=== PATIENT | male | born 1985 | race Caucasian/White ===

== ENCOUNTER → 2016-09-21 | Outpatient (CLI) | payer OTHER ==
[~2016-09-21] MED LIST: AMX500 PO; IBUP600T44 PO; INSDGI SC; PENI-82 PO
== END | disposition home or self-care (01) ==
LOC: C.LAB 00:52
DX: Z02.83 Encounter for blood-alcohol and blood-drug test (principal)

== ENCOUNTER 2020-09-02 12:42 | Inpatient (IN) ==
[2020-09-02] MEDS ORDERED: FAMOTIDINE 20MG IV PUSH 20 MG/5 ML SYR IV STA (12:59)
[2020-09-02] MEDS ORDERED: SODIUM CHLORIDE 0.9% 1000ML 1,000 ML IV ONE ×2 (12:59→13:56)
[2020-09-02] MEDS ORDERED: PANTOprazole 40 MG in SYRINGE 0 ML IV ONE (12:59)
[2020-09-02] MEDS ORDERED: fentaNYL citrate 100 MCG/2 ML VIAL IV PRN (12:59)
[2020-09-02] MEDS ORDERED: ONDANSETRON INJ 2 MG/ML 2 ML VIAL IV STA (12:59)
--- NOTE | 2020-09-02 13:12 | Emergency Department Note ---
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 posterior right ninth rib redemonstrated. KUB: Nonobstructive bowel gas pattern. No pneumatosis or pneumoperitoneum. No uroli th. Mild to moderate fecal retention. No acute fracture. IMPRESSION: 1. Acute mildly displaced fracture of the posterolateral right ninth rib redemonstrated. No pneumothorax. 2. Nonobstructive bowel gas pattern. ACT 112: Negative or not required by law. The above report was generated using voice recognition software. It may contain grammatical, syntax or spelling errors. Electronically signed by: Juan Kaye M.D. 09/02/2020 1:37 PM Abdomen/Pelvis CT 09/02/20 13:[address] WITHOUT CONTRAST CT DOSE: 284.49 mGy.cm HISTORY: Acute generalized abdominal pain with nausea and vomiting vomiting TECHNIQUE: Multiaxial CT images of the abdomen and pelvis were performed without contrast. A dose lowering technique was utilized adhering to the principles of ALARA. COMPARISON STUDY: KUB of same day, CT abdomen and pelvis 08/02/2020 FINDINGS: Subpleural 9 mm nodular density of the basal right lower lobe is new from comparison suggestive of scarring/atelectasis. Clear left lung base. No pn eumatosis or pneumoperitoneum. Hepatomegaly with hepatic steatosis. Probable cyst of the left hepatic lobe, 8 mm. There is suggested gallbladder sludge. The spleen, pancreas and adrenal glands are unremarkable. Kidneys appear normal. Moderate distention of the urinary bladder. 1.3 cm peripherally calcified structure of the left vas deferens, likely benign. Calcified plaque of the abdominal aorta without aneurysm. There is no adenopathy. Fluid-filled distended distal esophagus. Moderately distended fluid-filled stomach. No bowel obstruction. Normal appendix. Wall thickening of the cecum. Unremarkable soft tissues. Subacute healing mildly displaced fracture of the right lateral ninth rib. IMPRESSION: 1. No bowel obstruction or pneumoperitoneum. Normal appendix. 2. Mild wall thickening of the cecum secondary to partial distention versus a nonspecific colitis. 3. Moderately distended fluid-filled stomach. 4. Healing subacute mildly displaced fracture of the posterolateral right ninth rib. Resolution of the previously noted trace right pneumothorax. 5. Hepatomegaly with hepatic steatosis. ACT 112: Negative or not required by law. The above report was generated using voice recognition software. It may contain grammatical, syntax or spelling errors. Electronically signed by: Juan Kaye M.D. 09/02/2020 3:36 PM Discharge Plan Visit Data Chief Complaint: Vomiting Stated Complaint: THROWING UP SINCE YESTERDAY/NOT FEELING WELL ED Provider: Dilip Webb Discharge Problem: DKA, type 1, Vomiting, Acute hyperkalemia, Acute kidney injury, Acute deh ydration, Acute upper gastrointestinal bleeding Patient Disposition: Admitted As Inpatient Condition: Good Discharge Instructions Interventions: ED Discharge Assessment Last Done: 09/02/20 18:28 Discharge Problem: DKA, type 1 Qualifiers: Diabetes mellitus complication detail: without coma Qualified Code(s): E10.10 - Type 1 diabetes mellitus with ketoacidosis without coma Vomiting Qualifiers: Vomiting type: unspecified Vomiting Intractability: non-intractable Nausea presence: with nausea Qualified Code(s): R11.2 - Nausea with vomiting, unspecified
[2020-09-02 13:28] LABS: Hematocrit (blood only) 50.5 % (42-52); Hemoglobin 17.2 g/dL (14.0-18.0); Mean Corpuscular Hemoglobin 33.5 pg (25-34); Mean Corpuscular Hgb Conc 34.1 g/dL (32-36); Mean Corpuscular Volume 98.2 fL (80-100); Platelet Count 236 K/uL (130-400); RDW Standard Deviation 43.4 fL (36.4-46.3); Red Blood Count 5.14 M/uL (4.7-6.1); White Blood Count 21.17 K/uL (4.8-10.8)
--- NOTE | 2020-09-02 13:38 | XRay Report ---
XR chest 1V portable, XR KUB/Abdomen 1 view HISTORY: 35 years-old Male vomiting acute chest pain with nausea and vomiting COMPARISON: Chest radiograph 08/02/2020 TECHNIQUE: AP view of the chest with KUB radiograph FINDINGS: CHEST: Cardiomediastinal and hilar silhouettes are within normal limits. There is no pneumothorax, pleural e ffusion, airspace consolidation or overt pulmonary edema. Acute mildly displaced fracture of the post erior right ninth rib redemonstrated. KUB: Nonobstructive bowel gas pattern. No pneumatosis or pneumoperitoneum. No urolith. Mild to moderate fe myron retention. No acute fracture. IMPRESSION: 1. Acute mildly displaced fracture of the posterolateral right ninth rib redemonstrated. No pneumotho rax. 2. Nonobstructive bowel gas pattern. ACT 112: Negative or not required by law. The above report was generated using voice recognition software. It may contain grammatical, syntax o r spelling errors. Electronically signed by: Juan Kaye M.D. 09/02/2020 1:37 PM
[2020-09-02 13:48] LABS: INR 0.9 (0.9-1.1); Partial Thromboplastin Ratio 1.1; Partial Thromboplastin Time 29.6 Seconds (21.0-31.0); Prothrombin Time 9.1 Seconds (9.0-12.0)
[2020-09-02 13:54] LABS: Alanine Aminotransferase 58 U/L (12-78); Albumin Level 4.3 gm/dl (3.4-5.0); Alkaline Phosphatase 114 U/L (45-117); Aspartate Aminotransferase 15 U/L (15-37); BUN Creatinine Ratio 19.6 (10-20); Bilirubin,Total 0.9 mg/dl (0.2-1); Blood Urea Nitrogen 32 mg/dl (7-18); Calcium 10.8 mg/dl (8.5-10.1); Carbon Dioxide 7 mmol/L (21-32); Chloride 89 mmol/L (98-107); Creatinine Clr Calc Pharmacy 61.5 ml/min; Est GFR (African American) 61.9; Est GFR (Non-African American) 53.4; Glucose 619 mg/dl (70-99); Lipase 185 U/L (73-393); Potassium 5.5 mmol/L (3.5-5.1); Sodium 128 mmol/L (136-145); Troponin I < 0.015 ng/ml (0-0.045)
[2020-09-02] MEDS ORDERED: LACTATED RINGER'S 1,000 ML IV ONE (13:56)
[2020-09-02 13:58] LABS: ALC (manual) 0.85 K/uL (1.2-3.4); ANC (manual) 19.69 K/uL (1.4-6.5); Lymphocytes # (manual) 0.85 K/uL (1.2-3.4); Monocytes # (manual) 0.64 K/uL (0.11-0.59); Neutrophils # (manual) 19.69 K/uL (1.4-6.5); RBC Morphology Unremarkable
[2020-09-02] MEDS ORDERED: DEXTROSE 50% 50 ML SYRINGE IV PRN (14:00)
[2020-09-02] MEDS ORDERED: GLUCOSE 40% GEL 15 GM TUBE PO PRN (14:00)
[2020-09-02] MEDS ORDERED: GLUCAGON FOR INJ 1 MG VIAL SQ PRN (14:00)
[2020-09-02] MEDS ORDERED: GLUCOSE 10 TABS/TUBE PO PRN (14:00)
[2020-09-02] MEDS ORDERED: ED DKA INSULIN DRIP ONE (14:00)
[2020-09-02] MEDS ORDERED: CARBOHYDRATES FOR HYPOGLYCEMIA PO PRN (14:00)
[2020-09-02] MEDS ORDERED: DKA GOAL RANGE 150-250 mg/dl ONE (14:00)
[2020-09-02 14:02] LABS: Base Excess VBG -21.9 mEq/L; Oxygen Saturation VBG 97.7 %; pH VBG 7.08 (7.36-7.41)
[2020-09-02 14:13] LABS: iSTAT Ionized Calcium 1.1 mmol/l (1.12-1.32); iSTAT Potassium 6.1 mmol/L (3.3-5.0)
[2020-09-02] MEDS ORDERED: NovoLIN-R BOLUS FROM BAG IV ONE (14:15)
[2020-09-02 14:24] LABS: Magnesium 2.8 mg/dl (1.8-2.4); Phosphorus 8.1 mg/dl (2.5-4.9)
[2020-09-02] MEDS ORDERED: NovoLIN-R INSULIN PER UNIT CHARGE ONE (14:25)
[2020-09-02] MEDS: INSULIN REGULAR 250 UNITS in SODIUM CHLORIDE 0.9% 247.5 ML IV SCH ×4 (14:40→18:22)
[2020-09-02 14:43] LABS: Beta-Hydroxybutyrate 35.59 mg/dl (0.2-2.81)
[2020-09-02 14:59] LABS: Albumin Globulin Ratio 0.9 (0.9-2); Globulin 4.7 gm/dl (2.5-4.0)
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
[2020-09-02 15:17] LABS: Gastric Occult Blood Positive (Negative); pH Gastric Fluid 1
--- NOTE | 2020-09-02 15:38 | CT Scan Report ---
ABDOMEN AND PELVIS CT WITHOUT CONTRAST CT DOSE: 284.49 mGy.cm HISTORY: Acute generalized abdominal pain with nausea and vomiting vomiting TECHNIQUE: Multiaxial CT images of the abdomen and pelvis were performed without contrast. A dose lo wering technique was utilized adhering to the principles of ALARA. COMPARISON STUDY: KUB of same day, CT abdomen and pelvis 08/02/2020 FINDINGS: Subpleural 9 mm nodular density of the basal right lower lobe is new from comparison suggestive of sc arring/atelectasis. Clear left lung base. No pneumatosis or pneumoperitoneum. Hepatomegaly with hepatic steatosis. Probable cyst of the left hepatic lobe, 8 mm. There is suggested gallbladder sludge. The spleen, pancreas and adrenal glands are unremarkable. Kidneys appear normal. Moderate distention of the urinary bladder. 1.3 cm peripherally calcified structure of the left vas deferens, likely benign. Calcified plaque of the abdominal aorta without aneurysm. There is no adenop athy. Fluid-filled distended distal esophagus. Moderately distended fluid-filled stomach. No bowel obstruct ion. Normal appendix. Wall thickening of the cecum. Unremarkable soft tissues. Subacute healing mildl y displaced fracture of the right lateral ninth rib. IMPRESSION: 1. No bowel obstruction or pneumoperitoneum. Normal appendix. 2. Mild wall thickening of the cecum secondary to partial distention versus a nonspecific colitis. 3. Moderately distended fluid-filled stomach. 4. Healing subacute mildly displaced fracture of the posterolateral right ninth rib. Resolution of th e previously noted trace right pneumothorax. 5. Hepatomegaly with hepatic steatosis. ACT 112: Negative or not required by law. The above report was generated using voice recognition software. It may contain grammatical, syntax o r spelling errors. Electronically signed by: Juan Kaye M.D. 09/02/2020 3:36 PM
[2020-09-02] MEDS ORDERED: INSULIN ASPART 100 UNITS/ML 3 ML PEN SC SCH ×2 (16:30→18:32)
[2020-09-02 16:54] LABS: Influenza A virus by PCR Negative (Neg); Influenza B virus by PCR Negative (Neg); RSV by PCR Negative (Neg); SARS CoV2 RNA(COVID-19) InHosp NEGATIVE (Negative)
--- NOTE | 2020-09-02 16:55 | Communication Note ---
Date of Service: September 02, 2020
[2020-09-02] MEDS ORDERED: INSULIN REGULAR 250 UNITS in SODIUM CHLORIDE 0.9% 247.5 ML IV SCH ×2 (18:32→19:00)
[2020-09-02] MEDS ORDERED: hydrALAZINE HCL 20 MG/ML VIAL IV PRN (18:32)
[2020-09-02] MEDS ORDERED: PHARMACY GLYCEMIC MGMT CONSULT PRN (18:37)
[2020-09-02] MEDS ORDERED: NORMOSOL-R 1,000 ML IV SCH (18:45)
--- NOTE | 2020-09-02 18:46 | Electrocardiogram Report ---
Test Reason : Blood Pressure : / mmHG Vent. Rate : 120 BPM Atrial Rate : 120 BPM P-R Int : 154 ms QRS Dur : 102 ms QT Int : 308 ms P-R-T Axes : 071 079 055 degrees QTc Int : 435 ms Sinus tachycardia Biatrial enlargement Incomplete right bundle branch block Abnormal ECG When compared with ECG of 02-AUG-2020 18:56, ST elevation now present in Anterior leads Confirmed by Terence Ballard ([id number]) on 09/02/2020 6:46:25 PM Referred By: REFERRED SELF Confirmed By:Leodan Ballard
[2020-09-02] MEDS: FOLIC ACID 1 MG in SYRINGE 9.8 ML IV SCH (19:29)
[2020-09-02] MEDS: THIAMINE HCL 100 MG in SYRINGE 9 ML IV SCH (19:29)
[2020-09-02] MEDS: INSULIN ASPART 100 UNITS/ML 3 ML PEN SC SCH ×2 (19:31→20:41)
[2020-09-02 19:35] LABS: BUN Creatinine Ratio 23.8 (10-20); Calcium 9.2 mg/dl (8.5-10.1); Creatinine Clr Calc Pharmacy 93.4 ml/min; Est GFR (Non-African American) 82.9; Magnesium 2.3 mg/dl (1.8-2.4); Potassium 4.7 mmol/L (3.5-5.1)
[2020-09-02 19:39] LABS: Phosphorus 1.7 mg/dl (2.5-4.9)
[2020-09-02] MEDS: PENDING D5 1/2NS+20mEq KCL IVF SCH ×2 (19:43→21:06)
[2020-09-02] MEDS ORDERED: SODIUM CHLOR 0.45% + 20MEQ KCL 20 MEQ/1,000 ML BAG IV SCH (20:00)
[2020-09-02] MEDS ORDERED: Nursing to Pharmacy Communication SCH (20:45)
[2020-09-02] MEDS ORDERED: LORazepam 3 MG/6 ML VIAL IV PRN (20:53)
[2020-09-02] MEDS ORDERED: GABAPENTIN 600 MG TAB PO ONE (20:53)
[2020-09-02] MEDS ORDERED: GABAPENTIN 1200MG ALCOHOL WITHDRAWAL LOAD PO STA (20:53)
[2020-09-02] MEDS ORDERED: ATIVAN IV ALCOHOL WITHDRAWL IV PRN (20:53)
[2020-09-02] MEDS ORDERED: LORazepam 1 MG/2 ML VIAL IV PRN (20:53)
[2020-09-02] MEDS ORDERED: LORazepam 2 MG/4 ML VIAL IV PRN (20:53)
[2020-09-02 21:00] LABS: Appearance Urine Clear (Clear); Bacteria Urine Automated Negative (Negative); Bilirubin Urine Negative (Negative); Blood Urine Negative (Negative); Color Urine Yellow; Glucose Urine UA 3+ (Negative); Ketones Urine 4+ (Negative); Leukocyte Esterase Urine Negative (Negative); Nitrite Urine Negative (Negative); Protein Urine Trace (Negative); RBC Urine Automated 0-4 /hpf (0-4); Urobilinogen Urine Negative (Negative)
[2020-09-02] MEDS: D5W AND 1/2NSS + 20MEQ KCL 20 MEQ/1,000 ML BAG IV SCH (21:12)
--- NOTE | 2020-09-02 21:18 | Pharmacy Report ---
Pharmacy Glycemic Short Note 2 - Date of Service September 02, 2020 - Glycemic Short BSG Results (Last 24 hours): 09/02/20 09/02/20 09/02/20 13:21 14:01 14:38 Glucose 619 H* POC Glucose 592 H* POC Glucose (other) 625 H* 09/02/20 09/02/20 09/02/20 15:47 17:02 18:17 Glucose POC Glucose 551 H* 473 H* 394 H* POC Glucose (other) 09/02/20 09/02/20 09/02/20 19:07 19:32 20:32 Glucose 278 H POC Glucose 294 H 234 H POC Glucose (other) OUTPATIENT ANTIDIABETIC REGIMEN: * Basaglar 21 units SC HS * Novolog w/ meals and snack (4 times daily, up to 60 units/day) * HbA1c ordered and pending ASSESSMENT: * CR is a 35 year old male with T1DM who presented to ED this afternoon in DKA * Initial labs in ED: * Blood glucose: 619 mg/dL * CO2: 7 mmol/L * A * pH: 7.08 * BHA: 35 mg/dL * K+: 5.5 mmol/L * Patient was started on insulin infusion and IV fluids per DKA protocol * BSGs trended down nicely this evening 619 -> 234 mg/dL most recently * Labs also much improved this evening * CO2: 12 mmol/L, A, pH: 7.28, K+: 4.7 mmol/L * BSG now within goal range, so current IV fluids to incorporate dextrose * D5-1/2 NS + 20 KCl @250 mL/hr PLAN FOR INPATIENT GLYCEMIC CONTROL: * Will continue insulin infusion until anion gap closes and DKA resolves * Current insulin infusion rate is 8.9 unit/hr * Basal insulin * Hold today * Bolus insulin * NovoLog per scale ACHS or Q6hrs while NPO * Carb ratio per insulin infusion calculator PLAN FOR DISCHARGE: * tbd
[2020-09-02] MEDS: PANTOprazole 40 MG in SYRINGE 0 ML IV SCH (21:30)
[2020-09-02 22:45] LABS: Calcium 8.9 mg/dl (8.5-10.1); Creatinine Clr Calc Pharmacy 112.1 ml/min; Est GFR (African American) 119.7; Est GFR (Non-African American) 103.3; Magnesium 2.1 mg/dl (1.8-2.4); Potassium 4.8 mmol/L (3.5-5.1)
[2020-09-02 23:05] LABS: Phosphorus 0.8 mg/dl (2.5-4.9)
[2020-09-02] MEDS ORDERED: SODIUM PHOSPHATE 3 MMOL/1 ML INFUSION IV STA (23:07)
[2020-09-02] MEDS ORDERED: SODIUM PHOSPHATE 24 MMOL in SODIUM CHLORIDE 0.9% 500 ML IV ONE (23:15)
[2020-09-03] MEDS: D5W AND 1/2NSS + 20MEQ KCL 20 MEQ/1,000 ML BAG IV SCH ×3 (00:59→12:31)
[2020-09-03 03:04] LABS: BUN Creatinine Ratio 21.8 (10-20); Calcium 8.9 mg/dl (8.5-10.1); Creatinine Clr Calc Pharmacy 136.5 ml/min; Est GFR (African American) 135.5; Est GFR (Non-African American) 116.9; Magnesium 2.2 mg/dl (1.8-2.4); Potassium 4.3 mmol/L (3.5-5.1)
[2020-09-03] MEDS: GABAPENTIN 600 MG TAB PO SCH ×3 (03:44→18:17)
[2020-09-03 06:43] LABS: BUN Creatinine Ratio 22.1 (10-20); Calcium 8.9 mg/dl (8.5-10.1); Creatinine Clr Calc Pharmacy 145.8 ml/min; Est GFR (African American) 139.3; Est GFR (Non-African American) 120.2; Magnesium 2.1 mg/dl (1.8-2.4); Phosphorus 2.2 mg/dl (2.5-4.9); Potassium 3.8 mmol/L (3.5-5.1)
[2020-09-03] MEDS ORDERED: INSULIN GLARGINE SOLOSTAR 100 UNITS/ML 3 ML PEN SC ONE (07:30)
[2020-09-03] MEDS ORDERED: Nursing to Pharmacy Communication ONE (07:30)
[2020-09-03] MEDS: INSULIN ASPART 100 UNITS/ML 3 ML PEN SC SCH ×5 (08:32→20:05)
--- NOTE | 2020-09-03 08:49 | Pharmacy Report ---
Pharmacy Glycemic Short Note 2 - Date of Service September 03, 2020 - Glycemic Short BSG Results (Last 24 hours): 09/02/20 09/02/20 09/02/20 13:21 14:01 14:38 Glucose 619 H* POC Glucose 592 H* POC Glucose (other) 625 H* 09/02/20 09/02/20 09/02/20 15:47 17:02 18:17 Glucose POC Glucose 551 H* 473 H* 394 H* POC Glucose (other) 09/02/20 09/02/20 09/02/20 19:07 19:32 20:32 Glucose 278 H POC Glucose 294 H 234 H POC Glucose (other) 09/02/20 09/02/20 09/02/20 21:29 22:18 22:30 Glucose 185 H POC Glucose 194 H 176 H POC Glucose (other) 09/03/20 09/03/20 09/03/20 00:24 02:24 02:31 Glucose 102 H POC Glucose 155 H 110 H POC Glucose (other) 09/03/20 09/03/20 09/03/20 03:29 04:29 05:28 Glucose POC Glucose 107 H 144 H 157 H POC Glucose (other) 09/03/20 09/03/20 09/03/20 06:12 06:30 07:27 Glucose 136 H POC Glucose 124 H 118 H POC Glucose (other) 09/03/20 08:34 Glucose POC Glucose 103 H POC Glucose (other) OUTPATIENT ANTIDIABETIC REGIMEN: * Basaglar 21 units SC HS * Novolog w/ meals and snack (4 times daily, up to 60 units/day) * HbA1c ordered and pending ASSESSMENT: 09/04/20 * DKA resolved with IV insulin infusion + fluids. Labs WNL this morning with the exception of Cl elevation (most likely due to 1/2 NS). May consider changing to D5 + normosol. Need to continue the d5W while patient is NPO. * Pt uses 21 units of basal insulin as an outpatient. Will start with outpatient dosing and titrate based on BSG trends. Pt is NPO but will not reduce outpatient basal since patient is T1DM. * Will overlap IV + SQ basal bolus insulin regimen to prevent rebound hyperglycemia/DKA. 09/03/20 * CR is a 35 year old male with T1DM who presented to ED this afternoon in DKA * Initial labs in ED: * Blood glucose: 619 mg/dL * CO2: 7 mmol/L * A * pH: 7.08 * BHA: 35 mg/dL * K+: 5.5 mmol/L * Patient was started on insulin infusion and IV fluids per DKA protocol * BSGs trended down nicely this evening 619 -> 234 mg/dL most recently * Labs also much improved this evening * CO2: 12 mmol/L, A, pH: 7.28, K+: 4.7 mmol/L * BSG now within goal range, so current IV fluids to incorporate dextrose * D5-1/2 NS + 20 KCl @250 mL/hr PLAN FOR INPATIENT GLYCEMIC CONTROL: * Transition from IV insulin infusion to SQ basal bolus * Give Lantus 21 units SQ x 1 dose NOW (outpatient dosing) * may d/c IV insulin infusion when BOTH of the following criteria are met. 1. BSG below 180mg/dl x 2 checks 1 hr apart 2. Rate 1 unit/hr or BELOW * Current insulin infusion rate is 3.2 unit/hr * Basal insulin * Lantus 21 units SQ x 1 now * Bolus insulin * NovoLog per scale ACHS or Q6hrs while NPO * Goal range: lower to 110 - 150 mg/dl * CF: once IV insulin infusion dc will use CF = 30 mg/dl/unit * Carb ratio: 1 unit for every 11g CHO consumed (pt currently NPO though) PLAN FOR DISCHARGE: * tbd * A1c pending
[2020-09-03] MEDS: THIAMINE HCL 100 MG in SYRINGE 9 ML IV SCH (09:26)
[2020-09-03] MEDS: FOLIC ACID 1 MG in SYRINGE 9.8 ML IV SCH (09:26)
[2020-09-03] MEDS: PANTOprazole 40 MG in SYRINGE 0 ML IV SCH ×2 (09:26→20:18)
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
[2020-09-03 11:04] LABS: Calcium 8.6 mg/dl (8.5-10.1); Creatinine Clr Calc Pharmacy 161.3 ml/min; Est GFR (African American) 145.2; Est GFR (Non-African American) 125.3; Magnesium 1.9 mg/dl (1.8-2.4); Phosphorus 1.8 mg/dl (2.5-4.9); Potassium 4.2 mmol/L (3.5-5.1)
--- NOTE | 2020-09-03 13:03 | Electrocardiogram Report ---
Test Reason : Blood Pressure : / mmHG Vent. Rate : 120 BPM Atrial Rate : 120 BPM P-R Int : 148 ms QRS Dur : 094 ms QT Int : 300 ms P-R-T Axes : 079 078 045 degrees QTc Int : 424 ms Sinus tachycardia Otherwise normal ECG When compared with ECG of 02-SEP-2020 13:32, No significant change was found Confirmed by Terence Ballard ([id number]) on 09/03/2020 1:03:05 PM Referred By: REFERRED SELF Confirmed By:Leodan Ballard
[2020-09-03] MEDS: DC IV INSULIN INFUSION 1 EA DEVI SCH ×3 (16:43→17:43)
[2020-09-03] MEDS ORDERED: lisinopril 20 MG TAB PO SCH (21:00)
[2020-09-04] MEDS ORDERED: INSULIN ASPART 100 UNITS/ML 3 ML PEN SC SCH
[2020-09-04] MEDS: INSULIN ASPART 100 UNITS/ML 3 ML PEN SC SCH ×2 (00:51→09:09)
[2020-09-04] MEDS: GABAPENTIN 600 MG TAB PO SCH ×2 (00:53→09:10)
[2020-09-04 06:01] LABS: Estimated Average Glucose 200 mg/dl; Hemoglobin A1C 8.6 % (4.5-5.6)
--- NOTE | 2020-09-04 07:16 | Ultrasound Report ---
ULTRASOUND RIGHT UPPER QUADRANT ABDOMEN CLINICAL HISTORY: Hepatic steatosis. COMPARISON STUDY: Abdominal CT dated 09/02/2020. TECHNIQUE: Real-time, grayscale, and color flow sonography of the right upper quadrant of the abdomen was performed. Images are reviewed in the transverse and longitudinal planes. FINDINGS: Liver: The liver is enlarged and demonstrates heterogeneous increased echotexture consistent with hep atic steatosis. There is no intrahepatic biliary ductal dilatation. The main portal vein is patent. Gallbladder: The gallbladder is decompressed. A 3 mm gallbladder polyp is incidentally noted. No gall stones are identified. The gallbladder wall is top normal in thickness measuring up to 4 mm. No peric holecystic fluid is identified. A sonographic Chino's sign is reportedly absent. The common bile hilario t measures up to 0.5 cm in diameter. Pancreas: Visualized portions of the pancreatic head and body are normal in appearance. Right kidney: Survey images of the right kidney demonstrate normal size and echotexture. There is no hydronephrosis. Ascites: None. IMPRESSION: 1. No acute sonographic abnormality is seen in the right upper quadrant. 2. Hepatomegaly and hepatic steatosis. 3. A 3 mm gallbladder polyp is incidentally noted. 4. No gallstones are identified. ACT 112: Negative or not required by law. Electronically signed by: Sixto Abraham M.D. 09/04/2020 7:15 AM
[2020-09-04 08:23] LABS: Hematocrit (blood only) 37.4 % (42-52); Hemoglobin 13.4 g/dL (14.0-18.0); Mean Corpuscular Hemoglobin 33.1 pg (25-34); Mean Corpuscular Hgb Conc 35.8 g/dL (32-36); Mean Corpuscular Volume 92.3 fL (80-100); Mean Platelet Volume 9.5 fL (7.4-10.4); Platelet Count 143 K/uL (130-400); RDW Standard Deviation 40.8 fL (36.4-46.3); Red Blood Count 4.05 M/uL (4.7-6.1); White Blood Count 6.65 K/uL (4.8-10.8)
[2020-09-04 08:42] LABS: BUN Creatinine Ratio 20.2 (10-20); Blood Urea Nitrogen 10 mg/dl (7-18); Carbon Dioxide 23 mmol/L (21-32); Chloride 105 mmol/L (98-107); Creatinine Clr Calc Pharmacy 212.9 ml/min; Est GFR (African American) > 150.0; Est GFR (Non-African American) 140.4; Glucose 244 mg/dl (70-99); Potassium 3.7 mmol/L (3.5-5.1); Sodium 135 mmol/L (136-145)
[2020-09-04 08:46] LABS: Phosphorus 2.9 mg/dl (2.5-4.9)
[2020-09-04] MEDS ORDERED: INSULIN GLARGINE SOLOSTAR 100 UNITS/ML 3 ML PEN SC SCH (09:00)
[2020-09-04] MEDS: PANTOprazole 40 MG in SYRINGE 0 ML IV SCH (09:10)
[2020-09-04] MEDS: THIAMINE HCL 100 MG in SYRINGE 9 ML IV SCH (09:10)
[2020-09-04] MEDS: FOLIC ACID 1 MG in SYRINGE 9.8 ML IV SCH (09:10)
--- NOTE | 2020-09-04 09:57 | Pharmacy Report ---
Pharmacy Glycemic Short Note 2 - Date of Service September 04, 2020 - Glycemic Short BSG Results (Last 24 hours): 09/03/20 09/03/20 09/03/20 09:40 10:14 10:36 Glucose 204 H POC Glucose 79 130 H 09/03/20 09/03/20 09/03/20 11:15 12:09 13:15 Glucose POC Glucose 236 H 225 H 224 H 09/03/20 09/03/20 09/03/20 14:18 15:16 16:17 Glucose POC Glucose 204 H 131 H 70 09/03/20 09/03/20 09/03/20 17:17 19:52 20:13 Glucose POC Glucose 72 66 L* 91 09/04/20 09/04/20 09/04/20 00:03 07:55 08:16 Glucose 244 H POC Glucose 248 H 252 H OUTPATIENT ANTIDIABETIC REGIMEN: * Basaglar 21 units SC HS * Novolog w/ meals and snack (4 times daily, up to 60 units/day) * HbA1c ordered and pending ASSESSMENT: 09/04/20 * Mr. Calderón received a total of 87 units of insulin yesterday * 21 units basal + 9 units bolus + 57 units from insulin drip * BSGs were labile: [id number] mg/dL * Patient was transitioned off insulin drip yesterday afternoon after overlapping drip with Lantus dose * Fasting BSG was elevated at 252 mg/dL this AM * Increased basal dose by 20% today 09/03/20 * DKA resolved with IV insulin infusion + fluids. Labs WNL this morning with the exception of Cl elevation (most likely due to 1/2 NS). May consider changing to D5 + normosol. Need to continue the d5W while patient is NPO. * Pt uses 21 units of basal insulin as an outpatient. Will start with outpatient dosing and titrate based on BSG trends. Pt is NPO but will not reduce outpatient basal since patient is T1DM. * Will overlap IV + SQ basal bolus insulin regimen to prevent rebound hyperglycemia/DKA. 09/02/20 * CR is a 35 year old male with T1DM who presented to ED this afternoon in DKA * Initial labs in ED: * Blood glucose: 619 mg/dL * CO2: 7 mmol/L * A * pH: 7.08 * BHA: 35 mg/dL * K+: 5.5 mmol/L * Patient was started on insulin infusion and IV fluids per DKA protocol * BSGs trended down nicely this evening 619 -> 234 mg/dL most recently * Labs also much improved this evening * CO2: 12 mmol/L, A, pH: 7.28, K+: 4.7 mmol/L * BSG now within goal range, so current IV fluids to incorporate dextrose * D5-1/2 NS + 20 KCl @250 mL/hr PLAN FOR INPATIENT GLYCEMIC CONTROL: * Basal insulin - increased * Lantus 25 units SC daily * Bolus insulin * NovoLog per scale ACHS or Q6hrs while NPO * Goal range: lower to 110 - 150 mg/dl * CF = 30 mg/dl/unit * Carb ratio: 1 unit for every 9 g CHO consumed PLAN FOR DISCHARGE: * HbA1c = 8.6% from this admission. This is above the recommend goal of < 7% for this patient based on his age and comorbidities. * However, this has improved from 9% in December of 2019. * Recommend: * Continuing outpatient insulin regimen given labile blood sugars and close follow-up with outpatient provider to adjust insulin regimen if needed.
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
[2020-09-04] MEDS ORDERED: GABAPENTIN 600 MG TAB PO SCH (22:00)
[2020-09-06] MEDS ORDERED: GABAPENTIN 600 MG TAB PO SCH (10:00)
== END 2020-09-04 12:15 | disposition home or self-care (01) | DRG 637 ==
LOC: ED 12:42 → 3N 17:35